=== PATIENT | female | born 1935 | race Caucasian/White ===

== ENCOUNTER 2018-08-16 13:50 | Outpatient (CLI) | payer MEDICARE, OTHER | END 2018-08-16 13:51 | disposition home or self-care (01) | LOC: BICMAMMO 13:50 | PROVIDERS: ATTEND Internal Medicine | DX: Z12.31 Encounter for screening mammogram for malignant neoplasm of breast (principal) | CPT/HCPCS: 77063; 77067 ==

== ENCOUNTER 2019-08-21 15:11 | Outpatient (CLI) | payer MEDICARE, OTHER ==
--- NOTE | 2019-08-21 16:18 | BD ---
Exam: DEXA Bone Density 08/21/19 INDICATION: Postmenopausal screening. Lumbar Spine: BMD (g/cm2) T-SCORE L1 1.028 0.3 L2 1.078 0.5 L3 1.058 -0.2 L4 1.345 2.6 L1-L4 1.131 0.8 Femoral Neck: 0.621 -2.1 Total Femur: 0.825 -1.0 Lumbar spine density, 09/08/05: 0.967. Total femur density, 09/08/05: 0.820. Impression: 1. Bone mineral density of the lumbar spine within normal range. 2. Bone mineral density of the femoral neck indicates osteopenia. POS: [facility]
== END 2019-08-21 15:12 | disposition home or self-care (01) ==
LOC: BICMAMMO 15:11
PROVIDERS: ATTEND Internal Medicine Rheumatology
DX: M81.0 Age-related osteoporosis without current pathological fracture (principal); M85.859 Other specified disorders of bone density and structure, unspecified thigh
CPT/HCPCS: 77080

== ENCOUNTER 2019-09-14 14:37 | Outpatient (CLI) | payer MEDICARE, OTHER ==
--- NOTE | 2019-09-14 15:06 | RAD ---
Exam:3 views left shoulder HISTORY: Pain COMPARISON: None FINDINGS: Severe degenerative change. There is sclerosis and extensive osteophyte formation. No fract ure. IMPRESSION: Severely degenerative change.
--- NOTE | 2019-09-14 15:45 | RAD ---
EXAM: XR Sacroiliac Joints >=3 View DATE: 09/14/2019 12:00 AM INDICATION: Sacrococcygeal disorder COMPARISON: None. FINDING: There is moderate degenerative change of both SI joints. No displaced fracture is evident. There are scattered vascular calcification is within the pelvis. 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 There is diffuse osteo penia. IMPRESSION:Moderate SI joint degenerative changes.
== END 2019-09-14 14:38 | disposition home or self-care (01) ==
LOC: BICRAD 14:37
PROVIDERS: ATTEND Internal Medicine Rheumatology
DX: M25.512 Pain in left shoulder (principal); M53.3 Sacrococcygeal disorders, not elsewhere classified; M19.012 Primary osteoarthritis, left shoulder
CPT/HCPCS: 72202

== ENCOUNTER 2020-10-08 15:00 | Outpatient (CLI) | payer MEDICARE, OTHER ==
--- NOTE | 2020-10-09 13:04 | BD ---
DEXA BONE DENSITY STUDY: Date: 10/08/2020 HISTORY: Osteoporosis screening. COMPARISON: None. FINDINGS: Lumbar Spine: BMD (g/cm2) L1 0.891 T-Score: -0.9 Z-Score: 1.6 L2 0.917 T-Score: -1.0 Z-Score: 1.7 L3 0.940 T-Score: -1.3 Z-Score: 1.6 L4 1.214 T-Score: 1.4 Z-Score: 4.4 L1-L4 0.998 T-Score: -0.4 Z-Score: 2.4 Left Femoral Neck: 0.589 T-Score: -2.3 Z-Score: 0.1 Total Femur: 0.794 T-Score: -1.2 Z-Score: 1.0 WHO Classification: Osteopenia. IMPRESSION: Osteopenia with elevated fracture risk. POS: [facility]
== END 2020-10-08 15:01 | disposition home or self-care (01) ==
LOC: BICMAMMO 15:00
PROVIDERS: ATTEND Internal Medicine Rheumatology
DX: Z13.820 Encounter for screening for osteoporosis (principal); M85.89 Other specified disorders of bone density and structure, multiple sites
CPT/HCPCS: 77080

== ENCOUNTER 2021-10-12 13:16 | Outpatient (CLI) | payer MEDICARE, OTHER | END 2021-10-12 13:17 | disposition home or self-care (01) | LOC: BICMAMMO 13:16 | PROVIDERS: ATTEND Internal Medicine Endocrinology, Diabetes & Metabolism | DX: M81.0 Age-related osteoporosis without current pathological fracture (principal); M85.851 Other specified disorders of bone density and structure, right thigh; M85.852 Other specified disorders of bone density and structure, left thigh | CPT/HCPCS: 77080 ==

== ENCOUNTER 2022-05-28 10:59 | Inpatient (IN) | payer MEDICARE, OTHER ==
[2022-05-28 11:20] LABS: #Basophils 0.1 thou/uL (0.0-0.2); #Eosinphils 0.1 thou/uL (0.0-0.7); #Lymphocytes 2.5 thou/uL (1.20-3.40); #Monocytes 0.6 thou/uL (0.11-0.59); %Basophils 1.5 % (0.0-1.0); %Eosinophils 0.9 % (0.0-10.0); %Neutrophils 60.7 % (42.0-75.0); Hemoglobin 13.3 g/dL (12.0-16.0); Mean Corpuscular HGB CONC 32.2 g/dL (32.0-36.0); Mean Corpuscular Hemoglobin 30.7 pg (27.0-31.0); Mean Corpuscular Volume 95.4 fL (78.0-98.0); Mean Platelet Volume 9.1 fL (7.4-10.4); Platelet Count 161 thou/uL (130-400); RBC Distribution Width 13.1 % (11.5-14.5); Red Blood Cell (RBC) Count 4.34 mill/uL (4.20-5.40); White Blood Cell (WBC) Count 8.2 thou/uL (4.8-10.8)
[2022-05-28] MEDS ORDERED: niCARdipine 25 MG/10 ML VIAL ONE (11:25)
[2022-05-28 11:34] LABS: PTT 25.6 sec (22.9-36.1); Prothrombin Time 13.3 sec (12.0-14.7)
[2022-05-28 11:37] LABS: ALT (SGPT) 14 U/L (8-55); AST (SGOT) 26 U/L (5-34); Albumin 3.9 g/dL (3.4-4.8); Alkaline Phosphatase 66 U/L (40-110); Anion Gap 15 mmol/L (10-20); BUN (Urea Nitrogen) 21 mg/dL (9.8-20.1); Bilirubin, Total 0.9 mg/dL (0.2-1.2); CK (CPK) 123 U/L (29-168); Calc. Creatinine Clearance 0 mL/min (70-130); Calcium 9.2 mg/dL (7.8-10.44); Carbon Dioxide 24 mmol/L (23-31); Chloride 107 mmol/L (98-107); Estimated GFR 42; Globulin 2.8 g/dL (2.4-3.5); Glucose 102 mg/dL (83-110); Lipase 17 U/L (8-78); Potassium 4.1 mmol/L (3.5-5.1); Protein, Total 6.7 g/dL (5.8-8.1); Sodium 142 mmol/L (136-145)
[2022-05-28 12:00] LABS: CKMB 2.1 ng/mL (0-6.6)
[2022-05-28] MEDS ORDERED: Aspirin Chewable 81 MG TAB ONE (12:46)
[2022-05-28 14:58] LABS: Troponin I 0.071 ng/mL (< 0.028)
[2022-05-28] MEDS ORDERED: hydrALAZINE 20 MG/ML VIAL SLOW IVP PRN (15:01)
[2022-05-28] MEDS ORDERED: Acetaminophen 500 MG TAB PO PRN (15:01)
[2022-05-28] MEDS ORDERED: niCARdipine 25 MG in Sodium Chloride 0.9% 250 ML 250 ML IVPB SCH (15:01)
[2022-05-28] MEDS ORDERED: Ondansetron PF 4 MG/2 ML Vial IVP PRN (15:01)
[2022-05-28] MEDS ORDERED: Ondansetron ODT 4 MG TAB PO PRN (15:01)
[2022-05-28] MEDS ORDERED: BIOTENE MOUTH SPRAY 44.3 ML PO PRN (15:01)
[2022-05-28] MEDS ORDERED: Loperamide HCl 2 MG CAP PO PRN (15:01)
[2022-05-28 15:23] VITALS: BMI 27.7
[2022-05-28 18:49] LABS: Bacteria/HPF 2+ HPF (None Seen); Bilirubin Negative (Negative); Blood, Urine 1+ (Negative); Clarity Turbid (Clear); Glucose, Urine (Dipstick) Normal (Negative); Ketone, Urine 20 mg/dL (Negative); Leukocyte Negative Leu/uL (Negative); Nitrite 2+ (Negative); Protein, Urine (Dipstick) Negative (Neg-Trace); RBC/HPF 0-3 HPF (0-3); Specific Gravity, Urine 1.009 (1.002-1.036); Squamous Epithelial 0-3 HPF (0-3); Urobilinogen Normal mg/dL (Less than 2); WBC/HPF None Seen HPF (0-3); pH, Urine 6.5 (5.0-9.0)
[2022-05-28 20:38] LABS: SARS-CoV-2 NAA Rapid Test Not Detected (NotDetected)
[2022-05-28] MEDS: Famotidine 20 MG TAB PO SCH (20:52)
[2022-05-28] MEDS: Gabapentin 100 MG CAP PO SCH (20:52)
[2022-05-28] MEDS ORDERED: clonazePAM 0.5 MG TAB PO SCH (21:00)
[2022-05-28] MEDS ORDERED: Lifitegrast [Xiidra] 1 EACH Droperette EA EYE SCH (21:00)
[2022-05-28] MEDS: Fluticasone Propionate Nasal Spray 16 gm Bottle NASAL SCH (21:10)
[2022-05-29 03:49] LABS: #Basophils 0.1 thou/uL (0.0-0.2); #Eosinphils 0.1 thou/uL (0.0-0.7); #Lymphocytes 2.1 thou/uL (1.20-3.40); #Monocytes 0.7 thou/uL (0.11-0.59); #Neutrophils 4.3 thou/uL (1.40-6.50); %Basophils 0.8 % (0.0-1.0); %Eosinophils 1.9 % (0.0-10.0); %Lymphocytes 28.6 % (21.0-51.0); %Neutrophils 59.8 % (42.0-75.0); Hemoglobin 12.6 g/dL (12.0-16.0); Mean Corpuscular Hemoglobin 30.5 pg (27.0-31.0); Mean Corpuscular Volume 95.3 fL (78.0-98.0); Mean Platelet Volume 7.4 fL (7.4-10.4); Platelet Count 132 thou/uL (130-400); RBC Distribution Width 12.7 % (11.5-14.5); Red Blood Cell (RBC) Count 4.12 mill/uL (4.20-5.40); White Blood Cell (WBC) Count 7.3 thou/uL (4.8-10.8)
[2022-05-29 04:09] LABS: ALT (SGPT) 14 U/L (8-55); AST (SGOT) 29 U/L (5-34); Albumin 3.4 g/dL (3.4-4.8); Alkaline Phosphatase 57 U/L (40-110); Anion Gap 13 mmol/L (10-20); BUN (Urea Nitrogen) 14 mg/dL (9.8-20.1); Bilirubin, Total 0.8 mg/dL (0.2-1.2); Calc. Creatinine Clearance 42 mL/min (70-130); Calcium 8.5 mg/dL (7.8-10.44); Carbon Dioxide 25 mmol/L (23-31); Chloride 106 mmol/L (98-107); Estimated GFR 55; Globulin 2.6 g/dL (2.4-3.5); Glucose 82 mg/dL (83-110); Magnesium 1.7 mg/dL (1.6-2.6); Potassium 3.5 mmol/L (3.5-5.1); Sodium 140 mmol/L (136-145)
[2022-05-29] MEDS: Levothyroxine Sodium 88 MCG TAB PO SCH (05:43)
[2022-05-29] MEDS: Famotidine 20 MG TAB PO SCH (09:29)
[2022-05-29] MEDS: Hydroxychloroquine Sulfate 200 MG TAB PO SCH (09:30)
[2022-05-29] MEDS: Losartan 25 MG TAB PO SCH (09:30)
[2022-05-29] MEDS ORDERED: NIFEdipine XL 90 MG TAB PO SCH ×2 (09:30→10:00)
[2022-05-29] MEDS: Gabapentin 100 MG CAP PO SCH (10:31)
[2022-05-29] MEDS: Fluticasone Propionate Nasal Spray 16 gm Bottle NASAL SCH ×2 (10:33→20:27)
[2022-05-29] MEDS ORDERED: Furosemide 20 MG TAB PO PRN (10:40)
[2022-05-29] MEDS ORDERED: Aspirin Chewable 81 MG TAB PO SCH (12:45)
[2022-05-29] MEDS ORDERED: Amlodipine 5 MG TAB PO SCH (12:45)
[2022-05-29] MEDS ORDERED: NOREPINEPHRINE 8 MG/250 ML-D5W 250 ML IVPB SCH (17:30)
[2022-05-29] MEDS ORDERED: Artificial Tear Sol 15 ML BOT EA EYE PRN (17:39)
[2022-05-29] MEDS: Gabapentin 300 MG CAP PO SCH (20:27)
[2022-05-29] MEDS ORDERED: Gabapentin 300 MG CAP PO SCH (21:00)
[2022-05-30] MEDS: Levothyroxine Sodium 88 MCG TAB PO SCH (06:12)
[2022-05-30] MEDS: Rosuvastatin 10 MG TAB PO SCH (08:58)
[2022-05-30] MEDS: Amlodipine 5 MG TAB PO SCH (08:58)
[2022-05-30] MEDS: Famotidine 20 MG TAB PO SCH (08:59)
[2022-05-30] MEDS: Losartan 25 MG TAB PO SCH (08:59)
[2022-05-30] MEDS: Aspirin Chewable 81 MG TAB PO SCH (08:59)
[2022-05-30] MEDS: Fluticasone Propionate Nasal Spray 16 gm Bottle NASAL SCH ×2 (08:59→20:45)
[2022-05-30] MEDS: Hydroxychloroquine Sulfate 200 MG TAB PO SCH (09:00)
[2022-05-30] MEDS ORDERED: NIFEdipine XL 90 MG TAB PO SCH (09:00)
[2022-05-30 15:37] LABS: Anion Gap 13 mmol/L (10-20); BUN (Urea Nitrogen) 20 mg/dL (9.8-20.1); Calc. Creatinine Clearance 35 mL/min (70-130); Calcium 8.7 mg/dL (7.8-10.44); Carbon Dioxide 25 mmol/L (23-31); Chloride 105 mmol/L (98-107); Estimated GFR 44; Glucose 117 mg/dL (83-110); Potassium 3.7 mmol/L (3.5-5.1); Sodium 139 mmol/L (136-145)
[2022-05-30] MEDS: Gabapentin 300 MG CAP PO SCH (20:44)
[2022-05-31] MEDS: Levothyroxine Sodium 88 MCG TAB PO SCH (05:32)
[2022-05-31] MEDS: Hydroxychloroquine Sulfate 200 MG TAB PO SCH (08:26)
[2022-05-31] MEDS: Aspirin Chewable 81 MG TAB PO SCH (08:26)
[2022-05-31] MEDS: Losartan 25 MG TAB PO SCH (08:26)
[2022-05-31] MEDS: Rosuvastatin 10 MG TAB PO SCH (08:26)
[2022-05-31] MEDS: Amlodipine 5 MG TAB PO SCH (08:27)
[2022-05-31] MEDS: Famotidine 20 MG TAB PO SCH (08:27)
[2022-05-31] MEDS ORDERED: CEFAZOLIN 1 GM VIAL ONE ×2 (08:30→08:51)
[2022-05-31] MEDS ORDERED: Lidocaine 1% (PF) 30 ML VIAL ONE (08:30)
[2022-05-31] MEDS ORDERED: Gentamicin 80 MG/2 ML VIAL ONE (08:32)
[2022-05-31] MEDS ORDERED: Midazolam HCl 2 mg/2 ml Vial ONE (09:21)
[2022-05-31] MEDS ORDERED: Acetaminophen 325 MG TAB PO PRN (10:14)
[2022-05-31 10:30] LABS: #Eosinphils 0.1 thou/uL (0.0-0.7); #Lymphocytes 1.6 thou/uL (1.20-3.40); #Monocytes 0.8 thou/uL (0.11-0.59); #Neutrophils 6.6 thou/uL (1.40-6.50); %Basophils 0.3 % (0.0-1.0); %Eosinophils 0.9 % (0.0-10.0); %Lymphocytes 17.2 % (21.0-51.0); %Monocytes 8.7 % (0.0-10.0); Hemoglobin 13.5 g/dL (12.0-16.0); Mean Corpuscular HGB CONC 31.4 g/dL (32.0-36.0); Mean Corpuscular Hemoglobin 30.3 pg (27.0-31.0); Mean Corpuscular Volume 96.5 fL (78.0-98.0); Platelet Count 127 thou/uL (130-400); RBC Distribution Width 12.7 % (11.5-14.5); Red Blood Cell (RBC) Count 4.46 mill/uL (4.20-5.40); White Blood Cell (WBC) Count 9.1 thou/uL (4.8-10.8)
[2022-05-31 10:50] LABS: Anion Gap 14 mmol/L (10-20); BUN (Urea Nitrogen) 17 mg/dL (9.8-20.1); Calc. Creatinine Clearance 37 mL/min (70-130); Calcium 9.2 mg/dL (7.8-10.44); Carbon Dioxide 24 mmol/L (23-31); Chloride 105 mmol/L (98-107); Estimated GFR 47; Glucose 110 mg/dL (83-110); Potassium 4.1 mmol/L (3.5-5.1); Sodium 139 mmol/L (136-145)
[2022-05-31] MEDS: Fluticasone Propionate Nasal Spray 16 gm Bottle NASAL SCH ×3 (13:11→21:51)
[2022-05-31] MEDS ORDERED: Cyclobenzaprine 10 MG TAB PO PRN (14:03)
[2022-05-31] MEDS ORDERED: traMADol HCl 50 MG TAB PO PRN (14:03)
[2022-05-31] MEDS ORDERED: Melatonin 3 MG TAB PO PRN (14:05)
[2022-05-31] MEDS: Gabapentin 300 MG CAP PO SCH (21:50)
[2022-06-01] MEDS: Levothyroxine Sodium 88 MCG TAB PO SCH (06:39)
[2022-06-01] MEDS: Aspirin Chewable 81 MG TAB PO SCH (08:24)
[2022-06-01] MEDS: Rosuvastatin 10 MG TAB PO SCH (08:25)
[2022-06-01] MEDS: Amlodipine 5 MG TAB PO SCH (08:25)
[2022-06-01] MEDS: Hydroxychloroquine Sulfate 200 MG TAB PO SCH (08:25)
[2022-06-01] MEDS: Famotidine 20 MG TAB PO SCH (08:25)
[2022-06-01] MEDS: Losartan 25 MG TAB PO SCH (08:25)
[2022-06-01] MEDS: Fluticasone Propionate Nasal Spray 16 gm Bottle NASAL SCH (08:26)
[2022-06-01] MEDS ORDERED: Polyethylene Glycol 3350 17 GM Packet PO PRN (09:15)
[2022-06-01 12:01] VITALS: TEMP 97.5
[2022-06-01 12:03] VITALS: BP 163/78
== END 2022-06-01 14:36 | disposition home or self-care (01) | DRG 243 ==
LOC: ERS 10:59 → CCU 14:03 → SURG A 05-31 09:27 → NEURO 05-31 11:55
PROVIDERS: ADMIT Family Medicine; ATTEND Internal Medicine
PROC: 0JH606Z Insertion of Pacemaker, Dual Chamber into Chest Subcutaneous Tissue and Fascia, Open Approach (ICD-10-PCS; principal; 2022-05-31)
PROC: 02HK3JZ Insertion of Pacemaker Lead into Right Ventricle, Percutaneous Approach (ICD-10-PCS; 2022-05-31)
PROC: 02H63JZ Insertion of Pacemaker Lead into Right Atrium, Percutaneous Approach (ICD-10-PCS; 2022-05-31)
DX: I16.1 Hypertensive emergency (principal); I67.4 Hypertensive encephalopathy; N17.9 Acute kidney failure, unspecified; I45.2 Bifascicular block; Z20.822 Contact with and (suspected) exposure to COVID-19; I49.5 Sick sinus syndrome; M35.00 Sjogren syndrome, unspecified; I12.9 Hypertensive chronic kidney disease with stage 1 through stage 4 chronic kidney disease, or unspecified chronic kidney disease; E03.9 Hypothyroidism, unspecified; M41.9 Scoliosis, unspecified; R25.2 Cramp and spasm; Z90.49 Acquired absence of other specified parts of digestive tract; Z28.21 Immunization not carried out because of patient refusal; Z90.89 Acquired absence of other organs; Z98.890 Other specified postprocedural states; Z95.2 Presence of prosthetic heart valve; Z88.5 Allergy status to narcotic agent; Z86.79 Personal history of other diseases of the circulatory system
CPT/HCPCS: 33208; 36415; 70450; 71045; 80048; 80053; 81001; 82140; 82550; 82553; 83690; 83735; 84443; 84484; 85025; 85610; 85730; 93005; 93010; 93306; 96365; 96366; 97139; 99152; 99153; C1785; C1898; J0690; J1580; J2001; J2250; J2405; J7050; U0002